=== PATIENT | male | born 1975 | race Caucasian/White ===

== ENCOUNTER 2017-12-23 14:22 | Emergency (ER) | payer OTHER ==
[~2017-12-23] VITALS: Wt 80.7 kg
[~2017-12-23 14:22] MED LIST: AUGMENTIN 875875 MG PO; CLEOCIN150 MG PO; HYDROCODONE BIT1 T11 PO; NORCO 325 MG-51 TAB PO; PERIDEX 480 ML480 ML PO; ZOFRAN4 MG PO
[2017-12-23] MEDS ORDERED: Peridex 473 ML473 ML PO (14:30)
[2017-12-23] MEDS ORDERED: PENICILLIN VK500 MG PO (14:30)
[2017-12-23] MEDS ORDERED: NAPROSYN500 MG PO (14:30)
== END 2017-12-23 14:47 | disposition home or self-care (01) ==
LOC: ED 14:22
DX: K02.9 Dental caries, unspecified (principal); R03.0 Elevated blood-pressure reading, without diagnosis of hypertension; F17.200 Nicotine dependence, unspecified, uncomplicated

== ENCOUNTER 2019-12-01 10:31 | Emergency (ER) | payer OTHER ==
[~2019-12-01] VITALS: Ht 182.8 cm; Wt 81.6 kg
[~2019-12-01 10:31] MED LIST changes: +NAPROSYN500 MG PO; +PENICILLIN VK500 MG PO; +Peridex 473 ML473 ML PO; +Tobrex Ophth S2.5 ML OPH
[2019-12-01 10:49] LABS: BASO # 0.1 10*3/uL (0.0-0.1); BASO % 1.3 % (0.0-1.0); EOS # 0.8 10*3/uL (0.0-0.4); EOS % 11.9 % (1.0-4.0); HEMATOCRIT 41.4 % (42.0-52.0); HEMOGLOBIN 14.3 g/dl (14.0-18.0); LYMPH # 2.2 10*3/uL (1.3-4.4); LYMPH % 32.5 % (27.0-41.0); MEAN CELL VOLUME 89.2 fl (80.0-94.0); MEAN CORPUSCULAR HGB 30.8 pg (27.0-31.0); MEAN CORPUSCULAR HGB CONC 34.5 g/dl (33.0-37.0); MEAN PLATELET VOLUME 10.6 fl (9.6-12.3); MONO # 0.7 10*3/uL (0.1-1.0); MONO % 9.7 % (3.0-9.0); NEUT % 44.5 % (47.0-73.0); PLATELET COUNT AUTOMATED 236 10*3/uL (130-400); RED BLOOD COUNT 4.64 10*6/uL (4.50-5.90); RED CELL DISTRI WIDTH 11.9 % (0-14.5); WHITE BLOOD COUNT 6.7 10*3/uL (4.8-10.8)
[2019-12-01 10:58] LABS: ACT PARTIAL THROMBO TIME 27.1 SECONDS (20.0-32.1); INTERNATIONAL NORM RATIO 0.9 (2.0-3.5)
[2019-12-01 11:11] LABS: ALBUMIN 4.1 gm/dl (3.1-4.5); ALKALINE PHOSPHATASE 82 U/L (45-117); BUN 6 mg/dl (7-24); CHLORIDE 107 mmol/L (98-107); CREATININE 1.22 mg/dL (0.70-1.30); POTASSIUM 3.8 mmol/L (3.5-5.1); SGOT/AST 21 IU/L (3-35); SGPT/ALT 30 U/L (12-78); SODIUM 141 mmol/L (136-145); TOTAL PROTEIN 7.6 gm/dL (6.4-8.2)
[2019-12-01 11:12] LABS: TROPONIN I < 0.015 ng/ml (<0.045)
[2019-12-01] MEDS ORDERED: PREDNISONE50 MG PO (12:21)
== END 2019-12-01 12:30 | disposition home or self-care (01) ==
LOC: ED 10:31
PROVIDERS: Family Medicine
DX: M94.0 Chondrocostal junction syndrome [Tietze] (principal); F17.200 Nicotine dependence, unspecified, uncomplicated

== ENCOUNTER → 2019-12-11 | Outpatient (CLI) | payer OTHER ==
[~2019-12-11] MED LIST changes: +PREDNISONE50 MG PO
== END | disposition home or self-care (01) ==
LOC: US 06:28
DX: R10.11 Right upper quadrant pain (principal)

== ENCOUNTER 2023-07-20 11:04 | Emergency (ER) | payer OTHER ==
[~2023-07-20] VITALS: Ht 182.8 cm; Wt 83.9 kg
[2023-07-20] MEDS ORDERED: AMOXICILLIN875 MG PO (11:43)
== END 2023-07-20 11:48 | disposition home or self-care (01) ==
LOC: ED 11:04
DX: K04.7 Periapical abscess without sinus (principal)